=== PATIENT | male | born 1990 | race American Indian/Alaskan Native ===

== ENCOUNTER 2018-01-03 15:44 | Emergency (ER) | payer MEDICAID ==
[2018-01-03 16:00] VITALS: BP 154/110
[2018-01-03] MEDS ORDERED: MOTRIN PO ONE (16:58)
--- NOTE | 2018-01-03 16:59 | Emergency Department Report ---
ED Male HPI - General Chief complaint: Skin/Abscess/Foreign Body Stated complaint: BOIL Time Seen by Provider: 01/03/18 16:44 Source: patient Mode of arrival: Ambulatory Limitations: No Limitations - History of Present Illness Initial comments: 27-year-old male presents with complaint of 3 days of left-sided scrotal discomfort. Denies fever or chills denies nausea vomiting denies any trauma to his testicles or scrotum. Denies any urethral discharge denies any dysuria. States he had a case of scrotal cellulitis over a year ago and this is similar to the symptoms he experienced in the past. Patient was treated with antibiotics previously and resolved as per patient. Patient states that this current episode is extremely similar to prior episode. MD Complaint: testicle pain, testicle swelling Onset/Timin -: days(s) Location: left testicle Radiation: none Severity: moderate Quality: aching Consistency: constant Improves with: none Worsens with: none - Related Data Previous Rx's Medication Instructions Recorded Last Taken Type Cephalexin [Keflex] 500 mg PO Q12HR #14 cap 01/03/18 Unknown Rx Naproxen [Naprosyn TAB] 375 mg PO BID PRN #20 tablet 01/03/18 Unknown Rx Sulfamethoxazole/Trimethoprim 1 each PO BID #14 tablet 01/03/18 Unknown Rx [Bactrim Ds Tablet] Allergies Allergy/AdvReac Type Severity Reaction Status Date / Time morphine Allergy Hives Verified 01/03/18 15:59 ED Review of Systems ROS: Stated complaint: BOIL Other details as noted in HPI Constitutional: denies: chills, fever Eyes: denies: eye pain, eye discharge, vision change ENT: denies: ear pain, throat pain Respiratory: denies: cough, shortness of breath, wheezing Cardiovascular: denies: chest pain, palpitations Endocrine: no symptoms reported Gastrointestinal: denies: abdominal pain, nausea, diarrhea Genitourinary: denies: urgency, dysuria Musculoskeletal: denies: back pain, joint swelling, arthralgia Skin: denies: rash, lesions Neurological: denies: headache, weakness, paresthesias Psychiatric: denies: anxiety, depression Hematological/Lymphatic: denies: easy bleeding, easy bruising ED Past Medical Hx - Past Medical History Hx Hypertension: Yes - Surgical History Past Surgical History?: No - Social History Smoking Status: Never Smoker Substance Use Type: None - Medications Home Medications: Home Medications Medication Instructions Recorded Confirmed Last Taken Type Cephalexin [Keflex] 500 mg PO Q12HR #14 cap 01/03/18 Unknown Rx Naproxen [Naprosyn TAB] 375 mg PO BID PRN #20 tablet 01/03/18 Unknown Rx Sulfamethoxazole/Trimethoprim 1 each PO BID #14 tablet 01/03/18 Unknown Rx [Bactrim Ds Tablet] ED Physical Exam - General Limitations: No Limitations General appearance: alert, in no apparent distress - Head Head exam: Present: atraumatic, normocephalic - Eye Eye exam: Present: normal appearance, PERRL, EOMI - ENT ENT exam: Present: mucous membranes moist - Neck Neck exam: Present: normal inspection - Respiratory Respiratory exam: Present: normal lung sounds bilaterally. Absent: respiratory distress - Cardiovascular Cardiovascular Exam: Present: regular rate, normal rhythm. Absent: systolic murmur, diastolic murmur, rubs, gallop - GI/Abdominal GI/Abdominal exam: Present: soft, normal bowel sounds - Rectal Rectal exam: Present: deferred - exam: Present: testicular tenderness, scrotal swelling (left-sided testicular swelling and tenderness, some induration and no palpable fluctuance on examination.) - Extremities Exam Extremities exam: Present: normal inspection - Back Exam Back exam: Present: normal inspection - Neurological Exam Neurological exam: Present: alert, oriented X3, CN II-XII intact, normal gait - Psychiatric Psychiatric exam: Present: normal affect, normal mood - Skin Skin exam: Present: warm, dry, intact, normal color. Absent: rash ED Course Vital Signs 01/03/18 01/03/18 15:56 17:07 Temperature 98.3 F Pulse Rate 76 Respiratory 16 20 Rate Blood Pressure 154/110 O2 Sat by Pulse 97 Oximetry ED Medical Decision Making - Medical Decision Making A/P: Small scrotal abscess left sided 1-Keflex and Bactrim twice a day for 7 days 2-sits baths, warm compresses 3-naproxen when necessary 4-advised patient to return to the ED for any worsened abscess worsened swelling fever or chills nausea or vomiting difficulty urinating or defecating. He stated he understood my instructions 5- no clinical signs of Raman's gangrene on exam Critical care attestation.: If time is entered above; I have spent that time in minutes in the direct care of this critically ill patient, excluding procedure time. ED Disposition Clinical Impression: Cellulitis of scrotum Disposition: - TO HOME OR SELFCARE Is pt being admited?: No Does the pt Need Aspirin: No Condition: Stable Instructions: Cellulitis (ED), Sitz Bath (GEN) Prescriptions: Cephalexin [Keflex] 500 mg PO Q12HR #14 cap Naproxen [Naprosyn TAB] 375 mg PO BID PRN #20 tablet PRN Reason: Pain Sulfamethoxazole/Trimethoprim [Bactrim Ds Tablet] 1 each PO BID #14 tablet Referrals: PRIMARY CARE, [Primary Care Provider] - 3-5 Days [facility] [Outside] - 3-5 Days [facility] [Outside] - 3-5 Days Forms: Work/School Release Form(ED) Time of Disposition: 18:29
--- NOTE | 2018-01-03 18:16 | Ultrasound Report ---
FINAL REPORT PROCEDURE: US SCROTUM TECHNIQUE: Limited ultrasound of the left scrotal skin was performed HISTORY: left sided scrotal cellulitis / abscess COMPARISON: No prior studies are available for comparison. FINDINGS: In the area of concern there is a heterogeneous hypervascular subcutaneous area which measures 1.4 x 1.4 x 1.3 centimeters. No fluid collection is seen. This could be related to an area of cellulitis or early phlegmon. No drainable abscess is seen. IMPRESSION: Focal area of hypervascularity in the area of concern in the left scrotal subcutaneous area may be related to cellulitis or early phlegmon. No abscess is seen
== END 2018-01-03 18:40 | disposition home or self-care (01) ==
LOC: ED 15:44
DX: N49.2 Inflammatory disorders of scrotum (principal); I10 Essential (primary) hypertension; Z88.6 Allergy status to analgesic agent
CPT/HCPCS: 76870; 99283

== ENCOUNTER 2019-01-29 11:14 | Emergency (ER) | payer MEDICAID ==
[2019-01-29 11:40] VITALS: BP 148/92
--- NOTE | 2019-01-29 11:54 | Emergency Department Report ---
Chief Complaint: Upper Respiratory Infection Stated Complaint: COUGH 1WEEK Time Seen by Provider: 01/29/19 11:53 - HPI History of Present Illness: pt presents with a cough with mucus production x 1 week was seen at [facility] 3 days ago and placed on steroids, did not have CXR at that time states sx are not resolving no fever has not seen PCP - Exam Vital Signs: Vital Signs 01/29/19 11:39 Temperature 98.3 F Pulse Rate 75 Respiratory 18 Rate Blood Pressure 148/92 O2 Sat by Pulse 98 Oximetry MSE screening note: Focused history and physical exam performed. Due to findings the following was ordered: CXR ED Disposition for MSE Condition: Stable
[2019-01-29] MEDS ORDERED: TESSALON PERLES PO ONE (12:39)
[2019-01-29] MEDS ORDERED: IBUPROFEN PO ONE (12:39)
--- NOTE | 2019-01-29 12:39 | XRay Report ---
XRAY CHEST TWO VIEWS: 01/29/19 11:14:00 CLINICAL: Productive cough. COMPARISON: None FINDINGS: Normal heart and pulmonary vasculature. The lungs are normally expanded and clear.The bones and soft tissues are unremarkable. IMPRESSION: Normal chest.No pneumonia.
--- NOTE | 2019-01-29 12:42 | Emergency Department Report ---
Upper Respiratory HPI - HPI Chief Complaint: Upper Respiratory Infection Stated Complaint: COUGH 1WEEK Time Seen by Provider: 01/29/19 11:53 Duration: 1 week URI Symptoms: Rhinorrhea: Yes, Sore Throat: No, Ear Pain: No, Cough: Yes, Shortness of Breath: No, Sick Contacts: No, Unable to Take Fluids: No, Urine Output Abnormal: No, Listless Behavior: No Other History: This is a 28-year-old female nontoxic, well nourished in appearance, no acute signs of distress presents to the ED with c/o of productive cough, rhinorrhea, nasal congestion x1 week. Patient describes productive cough as yellow mucus production. Patient denies any sick contact. Patient denies any recent travels, long car, recent hospital stays. Patient denies any calf pain or calf tenderness. Patient denies any chest pain, short of breath, fever, chills, nausea, vomiting, hemoptysis, numbness, tingling, headache or stiff neck. - Home Meds and Allergies Home Medications: Previous Rx's Medication Instructions Recorded Last Taken Type Naproxen [Naprosyn TAB] 375 mg PO BID PRN #20 tablet 01/03/18 Unknown Rx Sulfamethoxazole/Trimethoprim 1 each PO BID #14 tablet 01/03/18 Unknown Rx [Bactrim Ds Tablet] cephALEXin [Keflex] 500 mg PO Q12HR #14 cap 01/03/18 Unknown Rx Azithromycin [Zithromax Z-ROBI] 250 mg PO DAILY #6 tablet 01/29/19 Unknown Rx Benzonatate [Tessalon Perle] 100 mg PO Q8H PRN #20 capsule 01/29/19 Unknown Rx Ibuprofen [Motrin] 600 mg PO Q8H PRN #20 tablet 01/29/19 Unknown Rx Prednisone [predniSONE 10 mg 10 mg PO .TAPER #1 tab.ds.pk 01/29/19 Unknown Rx (6-Day Pack, 21 Tabs)] Allergies/Adverse Reactions: Allergies Allergy/AdvReac Type Severity Reaction Status Date / Time morphine Allergy Hives Verified 01/03/18 15:59 ED Review of Systems ROS: Stated complaint: COUGH 1WEEK Other details as noted in HPI Constitutional: denies: chills, fever Eyes: denies: eye pain, eye discharge, vision change ENT: congestion. denies: ear pain, throat pain Respiratory: cough. denies: shortness of breath, wheezing Cardiovascular: denies: chest pain, palpitations Endocrine: no symptoms reported Gastrointestinal: denies: abdominal pain, nausea, diarrhea Genitourinary: denies: urgency, dysuria Musculoskeletal: denies: back pain, joint swelling, arthralgia Skin: denies: rash, lesions Neurological: denies: headache, weakness, paresthesias Psychiatric: denies: anxiety, depression Hematological/Lymphatic: denies: easy bleeding, easy bruising ED Past Medical Hx - Past Medical History Hx Hypertension: Yes - Social History Smoking Status: Never Smoker Substance Use Type: None - Medications Home Medications: Home Medications Medication Instructions Recorded Confirmed Last Taken Type Naproxen [Naprosyn TAB] 375 mg PO BID PRN #20 tablet 01/03/18 Unknown Rx Sulfamethoxazole/Trimethoprim 1 each PO BID #14 tablet 01/03/18 Unknown Rx [Bactrim Ds Tablet] cephALEXin [Keflex] 500 mg PO Q12HR #14 cap 01/03/18 Unknown Rx Azithromycin [Zithromax Z-ROBI] 250 mg PO DAILY #6 tablet 01/29/19 Unknown Rx Benzonatate [Tessalon Perle] 100 mg PO Q8H PRN #20 capsule 01/29/19 Unknown Rx Ibuprofen [Motrin] 600 mg PO Q8H PRN #20 tablet 01/29/19 Unknown Rx Prednisone [predniSONE 10 mg 10 mg PO .TAPER #1 tab.ds.pk 01/29/19 Unknown Rx (6-Day Pack, 21 Tabs)] ED Bronchiolitis Physical Exam - Exam General: Vital signs noted. No distress. Alert and acting appropriately. Neurologic: Alert and oriented, no deficits. Musculoskeletal: Unremarkable. ED Bronchiolitis Tests - Testing Testing: CXR: Normal/Negative ED Physical Exam - General Limitations: No Limitations General appearance: alert, in no apparent distress - Head Head exam: Present: atraumatic, normocephalic - Eye Eye exam: Present: normal appearance - ENT ENT exam: Present: normal exam, normal orophraynx - Neck Neck exam: Present: normal inspection, full ROM. Absent: tenderness, meningismus, lymphadenopathy - Respiratory Respiratory exam: Present: normal lung sounds bilaterally. Absent: respiratory distress, wheezes, rales, rhonchi, stridor, chest wall tenderness, accessory muscle use, decreased breath sounds, prolonged expiratory - Cardiovascular Cardiovascular Exam: Present: regular rate, normal rhythm, normal heart sounds. Absent: bradycardia, tachycardia, irregular rhythm, systolic murmur, diastolic murmur, rubs, gallop - Rectal Rectal exam: Present: deferred - Extremities Exam Extremities exam: Present: normal inspection, full ROM - Back Exam Back exam: Present: normal inspection, full ROM - Neurological Exam Neurological exam: Present: alert, oriented X3 - Psychiatric Psychiatric exam: Present: normal affect, normal mood - Skin Skin exam: Present: warm, dry, intact, normal color. Absent: rash ED Course Vital Signs 01/29/19 11:39 Temperature 98.3 F Pulse Rate 75 Respiratory 18 Rate Blood Pressure 148/92 O2 Sat by Pulse 98 Oximetry - Reevaluation(s) Reevaluation #1: 01/29/19 12:41 Patient is speaking in full sentences with no signs of distress noted. ED Medical Decision Making - Medical Decision Making This is a 28-year-old male that presents with bronchitis. Patient is stable and was examined by me. Chest x-ray has been obtained and dictated by radiologist with normal exam. Patient is notified of x-ray results with no questions noted. Due to patient having symptoms of upper respiratory infection and worsening I will treat patient empirically with zpak. Patient was instructed to increase hydration, rest and take Motrin for fever episodes. Patient received motrin and tesslone perrls in the ED. Vitals stable. Patient is nonfebrile and normal heart rate. Patient was instructed Follow-up with a primary care doctor in 3-5 days or if symptoms worsen and continue return to emergency room as soon as possible. At time time of discharge, the patient does not seem toxic or ill in appearance. No acute signs of distress noted. Patient agrees to discharge treatment plan of care. No further questions noted by the patient. Critical care attestation.: If time is entered above; I have spent that time in minutes in the direct care of this critically ill patient, excluding procedure time. ED Disposition Clinical Impression: Bronchitis Disposition: DC-01 TO HOME OR SELFCARE Is pt being admited?: No Does the pt Need Aspirin: No Condition: Stable Instructions: Acute Bronchitis (ED) Additional Instructions: Follow-up with a primary care doctor in 3-5 days or if symptoms worsen and continue return to emergency room as soon as possible. Prescriptions: Ibuprofen [Motrin] 600 mg PO Q8H PRN #20 tablet PRN Reason: Pain Prednisone [predniSONE 10 mg (6-Day Pack, 21 Tabs)] 10 mg PO .TAPER #1 tab.ds.pk Benzonatate [Tessalon Perle] 100 mg PO Q8H PRN #20 capsule PRN Reason: Cough Azithromycin [Zithromax Z-ROBI] 250 mg PO DAILY #6 tablet Referrals: PRIMARY CAREMD [Referring] - 3-5 Days DIANA PATEL MD [Staff Physician] - 3-5 Days [facility] [Outside] - 3-5 Days [facility] [Outside] - 3-5 Days Forms: Work/School Release Form(ED)
== END 2019-01-29 13:04 | disposition home or self-care (01) ==
LOC: ED 11:14
DX: J40 Bronchitis, not specified as acute or chronic (principal); I10 Essential (primary) hypertension; Z88.6 Allergy status to analgesic agent
CPT/HCPCS: 71046; 99283

== ENCOUNTER 2019-04-15 15:03 | Emergency (ER) | payer MEDICAID ==
[2019-04-15 15:20] VITALS: BP 145/98
--- NOTE | 2019-04-15 15:20 | Event Note ---
ED Screening Note Date of service: 04/15/19 Time: 15:18 ED Screening Note: 28 y/o male comes in for abscess on left upper thigh for 2-3 weeks. This initial assessment/diagnostic orders/clinical plan/treatment(s) is/are subject to change based on patients health status, clinical progression and re- assessment by fellow clinical providers in the ED. Further treatment and workup at subsequent clinical providers discretion. Patient/guardian urged not to elope from the ED as their condition may be serious if not clinically assessed and managed. Initial orders include:
[2019-04-15] MEDS ORDERED: XYLOCAINE 1% 20 mL INFILTRATI ONE (15:51)
--- NOTE | 2019-04-15 16:42 | Emergency Department Report ---
ED General Adult HPI - General Chief complaint: Skin/Abscess/Foreign Body Stated complaint: ABCESS ON LT BUTTOCK Time Seen by Provider: 04/15/19 15:18 Source: patient Mode of arrival: Ambulatory Limitations: No Limitations - History of Present Illness Initial comments: The patient presents to the emergency department with a chief complaint of an abscess to his right buttocks. Patient states the abscess has been present for 3 weeks and has not improved with warm compresses and soaks. Patient has no other complaints and denies fever. -: Gradual Location: buttocks Radiation: non-radiation Severity scale (0 -10): 5 Quality: sharp Consistency: constant Improves with: none Worsens with: none Associated Symptoms: denies other symptoms Treatments Prior to Arrival: none - Related Data Previous Rx's Medication Instructions Recorded Last Taken Type Naproxen [Naprosyn TAB] 375 mg PO BID PRN #20 tablet 01/03/18 Unknown Rx Sulfamethoxazole/Trimethoprim 1 each PO BID #14 tablet 01/03/18 Unknown Rx [Bactrim Ds Tablet] cephALEXin [Keflex] 500 mg PO Q12HR #14 cap 01/03/18 Unknown Rx Azithromycin [Zithromax Z-ROBI] 250 mg PO DAILY #6 tablet 01/29/19 Unknown Rx Benzonatate [Tessalon Perle] 100 mg PO Q8H PRN #20 capsule 01/29/19 Unknown Rx Ibuprofen [Motrin] 600 mg PO Q8H PRN #20 tablet 01/29/19 Unknown Rx Prednisone [predniSONE 10 mg 10 mg PO .TAPER #1 tab.ds.pk 01/29/19 Unknown Rx (6-Day Pack, 21 Tabs)] Acetaminophen/Codeine [Tylenol 1 tab PO Q6H PRN #15 tab 04/15/19 Unknown Rx /Codeine # 3 tab] Sulfamethoxazole/Trimethoprim 2 each PO BID #28 tablet 04/15/19 Unknown Rx [Bactrim DS TAB] Allergies Allergy/AdvReac Type Severity Reaction Status Date / Time morphine Allergy Hives Verified 01/03/18 15:59 ED Review of Systems ROS: Stated complaint: ABCESS ON LT BUTTOCK Other details as noted in HPI Constitutional: denies: chills, fever Eyes: denies: eye pain, eye discharge, vision change ENT: denies: ear pain, throat pain Respiratory: denies: cough, shortness of breath, wheezing Cardiovascular: denies: chest pain, palpitations Endocrine: no symptoms reported Gastrointestinal: denies: abdominal pain, nausea, diarrhea Genitourinary: denies: urgency, dysuria Musculoskeletal: denies: back pain, joint swelling, arthralgia Skin: other (abscess). denies: rash, lesions Neurological: denies: headache, weakness, paresthesias Psychiatric: denies: anxiety, depression Hematological/Lymphatic: denies: easy bleeding, easy bruising ED Past Medical Hx - Past Medical History Previous Medical History?: Yes Hx Hypertension: Yes - Surgical History Past Surgical History?: Yes Additional Surgical History: nasal surgery. eye surgery - Social History Smoking Status: Never Smoker Substance Use Type: Alcohol - Medications Home Medications: Home Medications Medication Instructions Recorded Confirmed Last Taken Type Naproxen [Naprosyn TAB] 375 mg PO BID PRN #20 tablet 01/03/18 Unknown Rx Sulfamethoxazole/Trimethoprim 1 each PO BID #14 tablet 01/03/18 Unknown Rx [Bactrim Ds Tablet] cephALEXin [Keflex] 500 mg PO Q12HR #14 cap 01/03/18 Unknown Rx Azithromycin [Zithromax Z-ROBI] 250 mg PO DAILY #6 tablet 01/29/19 Unknown Rx Benzonatate [Tessalon Perle] 100 mg PO Q8H PRN #20 capsule 01/29/19 Unknown Rx Ibuprofen [Motrin] 600 mg PO Q8H PRN #20 tablet 01/29/19 Unknown Rx Prednisone [predniSONE 10 mg 10 mg PO .TAPER #1 tab.ds.pk 01/29/19 Unknown Rx (6-Day Pack, 21 Tabs)] Acetaminophen/Codeine [Tylenol 1 tab PO Q6H PRN #15 tab 04/15/19 Unknown Rx /Codeine # 3 tab] Sulfamethoxazole/Trimethoprim 2 each PO BID #28 tablet 04/15/19 Unknown Rx [Bactrim DS TAB] ED Physical Exam - General Limitations: No Limitations General appearance: alert, in no apparent distress - Head Head exam: Present: atraumatic, normocephalic - Eye Eye exam: Present: normal appearance, PERRL, EOMI - ENT ENT exam: Present: mucous membranes moist - Neck Neck exam: Present: normal inspection - Respiratory Respiratory exam: Present: normal lung sounds bilaterally. Absent: respiratory distress - Cardiovascular Cardiovascular Exam: Present: regular rate, normal rhythm. Absent: systolic murmur, diastolic murmur, rubs, gallop - GI/Abdominal GI/Abdominal exam: Present: soft, normal bowel sounds - Rectal Rectal exam: Present: deferred - Extremities Exam Extremities exam: Present: normal inspection - Back Exam Back exam: Present: normal inspection - Neurological Exam Neurological exam: Present: alert, oriented X3 - Psychiatric Psychiatric exam: Present: normal affect, normal mood - Skin Skin exam: Present: warm, dry, intact, normal color, other (abscess to the right blood clots chaperoned by Dixon BENSON volunteer). Absent: rash ED Course Vital Signs 04/15/19 15:16 Temperature 98.2 F Pulse Rate 113 H Respiratory 21 Rate Blood Pressure 145/98 [Left] O2 Sat by Pulse 99 Oximetry - I & D Right Buttocks Type of Procedure: Simple Blade Size: 11 I & D Procedure: betadine prep Critical care attestation.: If time is entered above; I have spent that time in minutes in the direct care of this critically ill patient, excluding procedure time. ED Disposition Clinical Impression: Abscess Disposition: DC-01 TO HOME OR SELFCARE Is pt being admited?: No Does the pt Need Aspirin: No Condition: Stable Instructions: Abscess Incision and Drainage (ED), Abscess (ED) Additional Instructions: return if worse Prescriptions: Sulfamethoxazole/Trimethoprim [Bactrim DS TAB] 2 each PO BID #28 tablet Referrals: GASTON RAMIREZ MD [Primary Care Provider] - 3-5 Days [facility] [Provider Group] - 3-5 Days [facility] [Provider Group] - 3-5 Days Time of Disposition: 16:41
== END 2019-04-15 17:02 | disposition home or self-care (01) ==
LOC: ED 15:03
DX: L02.31 Cutaneous abscess of buttock (principal); I10 Essential (primary) hypertension; Z79.899 Other long term (current) drug therapy; Z88.6 Allergy status to analgesic agent
CPT/HCPCS: 99282

== ENCOUNTER 2019-04-20 07:52 | Emergency (ER) | payer MEDICAID ==
[2019-04-20 07:57] VITALS: BP 126/91
[2019-04-20] MEDS ORDERED: CLEOCIN PO ONE (08:19)
[2019-04-20] MEDS ORDERED: IBUPROFEN PO ONE (08:19)
--- NOTE | 2019-04-20 08:48 | Emergency Department Report ---
ED General Adult HPI - General Chief complaint: Skin/Abscess/Foreign Body Stated complaint: KNOT ON HEAD Time Seen by Provider: 04/20/19 08:12 Source: patient Mode of arrival: Ambulatory Limitations: No Limitations - History of Present Illness Initial comments: Patient is a 28-year-old Bulgarian male with past history of psoriasis who is presenting with headache as well as swelling to the posterior scalp. Patient states headache been present for approximately 3-4 days is achy and posterior. Denies any neck stiffness nausea vomiting fevers or chills. Patient states he pressed on the back of his head and felt some swelling 3 days ago and believes this is the cause of the patient's headache. Severity scale (0 -10): 6 Quality: aching Consistency: constant Improves with: other (warm compress) - Related Data Previous Rx's Medication Instructions Recorded Last Taken Type Naproxen [Naprosyn TAB] 375 mg PO BID PRN #20 tablet 01/03/18 Unknown Rx Sulfamethoxazole/Trimethoprim 1 each PO BID #14 tablet 01/03/18 Unknown Rx [Bactrim Ds Tablet] cephALEXin [Keflex] 500 mg PO Q12HR #14 cap 01/03/18 Unknown Rx Azithromycin [Zithromax Z-ROBI] 250 mg PO DAILY #6 tablet 01/29/19 Unknown Rx Benzonatate [Tessalon Perle] 100 mg PO Q8H PRN #20 capsule 01/29/19 Unknown Rx Ibuprofen [Motrin] 600 mg PO Q8H PRN #20 tablet 01/29/19 Unknown Rx Prednisone [predniSONE 10 mg 10 mg PO .TAPER #1 tab.ds.pk 01/29/19 Unknown Rx (6-Day Pack, 21 Tabs)] Acetaminophen/Codeine [Tylenol 1 tab PO Q6H PRN #15 tab 04/15/19 Unknown Rx /Codeine # 3 tab] Sulfamethoxazole/Trimethoprim 2 each PO BID #28 tablet 04/15/19 Unknown Rx [Bactrim DS TAB] Clindamycin [Clindamycin CAP] 300 mg PO Q8H #21 cap 04/20/19 Unknown Rx Ibuprofen [Motrin 600 MG tab] 600 mg PO Q8H PRN #20 tablet 04/20/19 Unknown Rx Allergies Allergy/AdvReac Type Severity Reaction Status Date / Time morphine Allergy Hives Verified 01/03/18 15:59 ED Review of Systems ROS: Stated complaint: KNOT ON HEAD Other details as noted in HPI Comment: All other systems reviewed and negative ED Past Medical Hx - Past Medical History Previous Medical History?: Yes Hx Hypertension: Yes Hx Headaches / Migraines: Yes - Surgical History Past Surgical History?: Yes Additional Surgical History: nasal surgery. eye surgery - Social History Smoking Status: Never Smoker Substance Use Type: Alcohol - Medications Home Medications: Home Medications Medication Instructions Recorded Confirmed Last Taken Type Naproxen [Naprosyn TAB] 375 mg PO BID PRN #20 tablet 01/03/18 Unknown Rx Sulfamethoxazole/Trimethoprim 1 each PO BID #14 tablet 01/03/18 Unknown Rx [Bactrim Ds Tablet] cephALEXin [Keflex] 500 mg PO Q12HR #14 cap 01/03/18 Unknown Rx Azithromycin [Zithromax Z-ROBI] 250 mg PO DAILY #6 tablet 01/29/19 Unknown Rx Benzonatate [Tessalon Perle] 100 mg PO Q8H PRN #20 capsule 01/29/19 Unknown Rx Ibuprofen [Motrin] 600 mg PO Q8H PRN #20 tablet 01/29/19 Unknown Rx Prednisone [predniSONE 10 mg 10 mg PO .TAPER #1 tab.ds.pk 01/29/19 Unknown Rx (6-Day Pack, 21 Tabs)] Acetaminophen/Codeine [Tylenol 1 tab PO Q6H PRN #15 tab 04/15/19 Unknown Rx /Codeine # 3 tab] Sulfamethoxazole/Trimethoprim 2 each PO BID #28 tablet 04/15/19 Unknown Rx [Bactrim DS TAB] Clindamycin [Clindamycin CAP] 300 mg PO Q8H #21 cap 04/20/19 Unknown Rx Ibuprofen [Motrin 600 MG tab] 600 mg PO Q8H PRN #20 tablet 04/20/19 Unknown Rx ED Physical Exam - General Limitations: No Limitations General appearance: alert, in no apparent distress - Head Head exam: Present: atraumatic, normocephalic - Eye Eye exam: Present: normal appearance - ENT ENT exam: Present: mucous membranes moist - Neck Neck exam: Present: normal inspection - Respiratory Respiratory exam: Present: normal lung sounds bilaterally. Absent: respiratory distress - Cardiovascular Cardiovascular Exam: Present: regular rate, normal rhythm - GI/Abdominal GI/Abdominal exam: Present: soft, normal bowel sounds - Rectal Rectal exam: Present: deferred - Extremities Exam Extremities exam: Present: normal inspection - Back Exam Back exam: Present: normal inspection - Neurological Exam Neurological exam: Present: alert, oriented X3 - Psychiatric Psychiatric exam: Present: normal affect, normal mood - Skin Skin exam: Present: warm, dry, intact, normal color, other (patient with area of folliculitis in the posterior scalp has some erythema with no fluctuance. Areas breath sounds with silver dollar.). Absent: rash ED Course Vital Signs 04/20/19 07:53 Temperature 98.4 F Pulse Rate 99 H Respiratory 18 Rate Blood Pressure 126/91 O2 Sat by Pulse 97 Oximetry ED Medical Decision Making - Medical Decision Making Patient's headache likely secondary to folliculitis that was discovered on physical exam. Patient will be started on clindamycin given Ms. for symptomatic relief and will be discharged home. Critical care attestation.: If time is entered above; I have spent that time in minutes in the direct care of this critically ill patient, excluding procedure time. ED Disposition Clinical Impression: Folliculitis Disposition: DC-01 TO HOME OR SELFCARE Is pt being admited?: No Does the pt Need Aspirin: No Condition: Stable Instructions: Folliculitis (ED) Referrals: GASTON RAMIREZ MD [Referring] - 3-5 Days Time of Disposition: 08:47
== END 2019-04-20 08:57 | disposition home or self-care (01) ==
LOC: ED 07:52
DX: L73.9 Follicular disorder, unspecified (principal); I10 Essential (primary) hypertension; G43.909 Migraine, unspecified, not intractable, without status migrainosus; Z79.899 Other long term (current) drug therapy; Z88.6 Allergy status to analgesic agent
CPT/HCPCS: 99282

== ENCOUNTER 2019-05-05 03:29 | Emergency (ER) | payer MEDICAID ==
[2019-05-05 03:34] VITALS: BP 162/110
[2019-05-05] MEDS ORDERED: DECADRON IM ONE (05:02)
[2019-05-05] MEDS ORDERED: TORADOL IM ONE (05:02)
--- NOTE | 2019-05-05 05:43 | Emergency Department Report ---
ED Neck Pain/Injury HPI - General Chief Complaint: Neck Pain/Injury Stated Complaint: NECK PAIN Time Seen by Provider: 05/05/19 04:50 Mode of arrival: Ambulatory Limitations: No Limitations - History of Present Illness Initial Comments: Patient is a 28-year-old -[place] male with no past medical history presents to the ED complaining of acute onset persistent severe nontraumatic right lateral shoulder pain and neck pain for the last 4 days. Patient states that he woke up with a thin 4 days ago on that in the last 2 days the pain has worsened despite taking any medications and muscle relaxant at home. Patient denies chest pain, shortness of breath, traumatic injury, heavy lifting, dizziness, headache, change in vision, numbness and tingling of the upper extremities bilaterally, back pain, nausea and vomiting. MD Complaint: neck pain, other (right lateral shoulder pain) -: Sudden, days(s) (4) Place: home Radiation: right lateral, right upper extremity (shoulder) Severity: severe, constant Severity scale (0 -10): 7 Quality: sharp, aching Consistency: constant Improves With: none Worsens With: movement of extremity (right shoulder), movement of neck Context: unknown Associated Symptoms: none. denies: headache, fever, numbness, tingling, weakness, vertigo, difficulty walking, swollen glands, difficulty swallowing, nausea, vomiting Treatments Prior to Arrival: none - Related Data Previous Rx's Medication Instructions Recorded Last Taken Type Naproxen [Naprosyn TAB] 375 mg PO BID PRN #20 tablet 01/03/18 Unknown Rx Sulfamethoxazole/Trimethoprim 1 each PO BID #14 tablet 01/03/18 Unknown Rx [Bactrim Ds Tablet] cephALEXin [Keflex] 500 mg PO Q12HR #14 cap 01/03/18 Unknown Rx Azithromycin [Zithromax Z-ROBI] 250 mg PO DAILY #6 tablet 01/29/19 Unknown Rx Benzonatate [Tessalon Perle] 100 mg PO Q8H PRN #20 capsule 01/29/19 Unknown Rx Ibuprofen [Motrin] 600 mg PO Q8H PRN #20 tablet 01/29/19 Unknown Rx Prednisone [predniSONE 10 mg 10 mg PO .TAPER #1 tab.ds.pk 01/29/19 Unknown Rx (6-Day Pack, 21 Tabs)] Acetaminophen/Codeine [Tylenol 1 tab PO Q6H PRN #15 tab 04/15/19 Unknown Rx /Codeine # 3 tab] Sulfamethoxazole/Trimethoprim 2 each PO BID #28 tablet 04/15/19 Unknown Rx [Bactrim DS TAB] Clindamycin [Clindamycin CAP] 300 mg PO Q8H #21 cap 04/20/19 Unknown Rx Ibuprofen [Motrin 600 MG tab] 600 mg PO Q8H PRN #20 tablet 04/20/19 Unknown Rx Naproxen [Naprosyn TAB] 500 mg PO Q12H PRN #20 tablet 05/05/19 Unknown Rx predniSONE [Deltasone] 40 mg PO QDAY #10 tab 05/05/19 Unknown Rx tiZANidine [Zanaflex 4mg TAB] 4 mg PO Q8H PRN #21 tablet 05/05/19 Unknown Rx traMADol [Ultram] 50 mg PO Q6HR PRN #10 tablet 05/05/19 Unknown Rx Allergies Allergy/AdvReac Type Severity Reaction Status Date / Time morphine Allergy Hives Verified 01/03/18 15:59 ED Review of Systems ROS: Stated complaint: NECK PAIN Other details as noted in HPI Constitutional: denies: chills, fever Eyes: denies: eye pain, eye discharge, vision change ENT: denies: ear pain, throat pain Respiratory: denies: cough, shortness of breath, SOB with exertion, SOB at rest, wheezing Cardiovascular: denies: chest pain, palpitations Endocrine: no symptoms reported. denies: see HPI, excessive sweating, flushing, increased hunger, increased thirst, increased urine, unexplained weight gain, unexplained weight loss Gastrointestinal: denies: abdominal pain, nausea, diarrhea Genitourinary: denies: urgency, dysuria Musculoskeletal: arthralgia (right lateral neck and shoulder pain). denies: back pain, joint swelling Skin: denies: rash, lesions Neurological: denies: headache, weakness, paresthesias Psychiatric: denies: anxiety, depression Hematological/Lymphatic: denies: easy bleeding, easy bruising ED Past Medical Hx - Past Medical History Previous Medical History?: Yes Hx Hypertension: Yes Hx Headaches / Migraines: Yes - Surgical History Past Surgical History?: Yes Additional Surgical History: nasal surgery. eye surgery - Social History Smoking Status: Never Smoker Substance Use Type: Alcohol - Medications Home Medications: Home Medications Medication Instructions Recorded Confirmed Last Taken Type Naproxen [Naprosyn TAB] 375 mg PO BID PRN #20 tablet 01/03/18 Unknown Rx Sulfamethoxazole/Trimethoprim 1 each PO BID #14 tablet 01/03/18 Unknown Rx [Bactrim Ds Tablet] cephALEXin [Keflex] 500 mg PO Q12HR #14 cap 01/03/18 Unknown Rx Azithromycin [Zithromax Z-ROBI] 250 mg PO DAILY #6 tablet 01/29/19 Unknown Rx Benzonatate [Tessalon Perle] 100 mg PO Q8H PRN #20 capsule 01/29/19 Unknown Rx Ibuprofen [Motrin] 600 mg PO Q8H PRN #20 tablet 01/29/19 Unknown Rx Prednisone [predniSONE 10 mg 10 mg PO .TAPER #1 tab.ds.pk 01/29/19 Unknown Rx (6-Day Pack, 21 Tabs)] Acetaminophen/Codeine [Tylenol 1 tab PO Q6H PRN #15 tab 04/15/19 Unknown Rx /Codeine # 3 tab] Sulfamethoxazole/Trimethoprim 2 each PO BID #28 tablet 04/15/19 Unknown Rx [Bactrim DS TAB] Clindamycin [Clindamycin CAP] 300 mg PO Q8H #21 cap 04/20/19 Unknown Rx Ibuprofen [Motrin 600 MG tab] 600 mg PO Q8H PRN #20 tablet 04/20/19 Unknown Rx Naproxen [Naprosyn TAB] 500 mg PO Q12H PRN #20 tablet 05/05/19 Unknown Rx predniSONE [Deltasone] 40 mg PO QDAY #10 tab 05/05/19 Unknown Rx tiZANidine [Zanaflex 4mg TAB] 4 mg PO Q8H PRN #21 tablet 05/05/19 Unknown Rx traMADol [Ultram] 50 mg PO Q6HR PRN #10 tablet 05/05/19 Unknown Rx ED Physical Exam - General Limitations: No Limitations General appearance: alert, in no apparent distress - Head Head exam: Present: atraumatic, normocephalic, normal inspection - Eye Eye exam: Present: normal appearance, PERRL, EOMI. Absent: scleral icterus, conjunctival injection, nystagmus Pupils: Present: normal accommodation - ENT ENT exam: Present: normal exam, normal orophraynx, mucous membranes moist, TM's normal bilaterally, normal external ear exam - Neck Neck exam: Present: normal inspection, tenderness (palpable cervical paraspinal musculoskeletal tenderness with limited ROM due to pain). Absent: meningismus, full ROM, lymphadenopathy, thyromegaly - Respiratory Respiratory exam: Present: normal lung sounds bilaterally. Absent: respiratory distress, wheezes, rales, stridor, chest wall tenderness, accessory muscle use, decreased breath sounds, prolonged expiratory - Cardiovascular Cardiovascular Exam: Present: regular rate, normal rhythm, normal heart sounds. Absent: systolic murmur, diastolic murmur, rubs, gallop - GI/Abdominal GI/Abdominal exam: Present: soft, normal bowel sounds. Absent: tenderness, guarding, organomegaly - Rectal Rectal exam: Present: deferred - Extremities Exam Extremities exam: Present: normal inspection, full ROM, tenderness (right lateral shoulder tenderness), normal capillary refill - Back Exam Back exam: Present: normal inspection, full ROM. Absent: tenderness, CVA tenderness (L), muscle spasm, paraspinal tenderness, vertebral tenderness - Neurological Exam Neurological exam: Present: alert, oriented X3, CN II-XII intact, normal gait, reflexes normal - Psychiatric Psychiatric exam: Present: normal affect, normal mood - Skin Skin exam: Present: warm, dry, intact, normal color. Absent: rash ED Course Vital Signs 05/05/19 03:33 Temperature 97.5 F L Pulse Rate 97 H Respiratory 18 Rate Blood Pressure 162/110 [Right] O2 Sat by Pulse 98 Oximetry - Reevaluation(s) Reevaluation #1: 05/05/19 05:43 Patient is alert and oriented 3 and is not in distress with normal vital signs. Patient was treated for pain and on reevaluation, patient's pain is controlled with medications. Patient discharged home on medications and advised to follow up with his primary care physician in 5-7 days for reevaluation. Patient is advised to return to the ED immediately if symptoms get worse. ED Medical Decision Making - Medical Decision Making Patient is alert and oriented 3 and is not in distress with normal vital signs. Patient was treated for pain and on reevaluation, patient's pain is controlled with medications. Patient discharged home on medications and advised to follow up with his primary care physician in 5-7 days for reevaluation. Patient is ad vised to return to the ED immediately if symptoms get worse. - Differential Diagnosis cervical sprain; acute torticollis; right shoulder muscle strain Critical care attestation.: If time is entered above; I have spent that time in minutes in the direct care of this critically ill patient, excluding procedure time. ED Disposition Clinical Impression: Cervical paraspinal muscle spasm, Acute torticollis Muscle strain of right shoulder Qualifiers: Encounter type: initial encounter Qualified Code(s): S46.911A - Strain of unspecified muscle, fascia and tendon at shoulder and upper arm level, right arm, initial encounter Disposition: TO HOME OR SELFCARE Is pt being admited?: No Does the pt Need Aspirin: No Condition: Stable Instructions: Muscle Strain (ED), Cervical Sprain (ED), Spasmodic Torticollis (ED) Additional Instructions: Take medications with food, drink plenty of fluids and follow up with your primary care physician in 5-7 days for reevaluation. Return to the ED immediately if symptoms get worse. Prescriptions: predniSONE [Deltasone] 40 mg PO QDAY #10 tab Naproxen [Naprosyn TAB] 500 mg PO Q12H PRN #20 tablet PRN Reason: Pain , Severe (7-10) traMADol [Ultram] 50 mg PO Q6HR PRN #10 tablet PRN Reason: Pain tiZANidine [Zanaflex 4mg TAB] 4 mg PO Q8H PRN #21 tablet PRN Reason: Spasms Referrals: [facility] [Outside] - 3-5 Days Time of Disposition: 05:46 Print Language: SAMI
== END 2019-05-05 06:16 | disposition home or self-care (01) ==
LOC: ED 03:29
DX: S46.911A Strain of unspecified muscle, fascia and tendon at shoulder and upper arm level, right arm, initial encounter (principal); M62.838 Other muscle spasm; M43.6 Torticollis; I10 Essential (primary) hypertension; G43.909 Migraine, unspecified, not intractable, without status migrainosus; Z79.899 Other long term (current) drug therapy; Z88.6 Allergy status to analgesic agent; Z98.890 Other specified postprocedural states; X58.XXXA Exposure to other specified factors, initial encounter; Y93.89 Activity, other specified; Y92.89 Other specified places as the place of occurrence of the external cause; Y99.8 Other external cause status
CPT/HCPCS: 96372; 99282; J1100; J1885

== ENCOUNTER 2019-05-06 17:03 | Emergency (ER) | payer MEDICAID ==
[2019-05-06 17:32] VITALS: BP 167/113
--- NOTE | 2019-05-06 17:32 | Event Note ---
ED Screening Note Date of service: 05/06/19 Time: 17:31 ED Screening Note: 28 y o male presents to ED cc of severe right sided shoulder pain, no trauma in some distress ekg done was seen few days ago This initial assessment/diagnostic orders/clinical plan/treatment(s) is/are subject to change based on patients health status, clinical progression and re- assessment by fellow clinical providers in the ED. Further treatment and workup at subsequent clinical providers discretion. Patient/guardian urged not to elope from the ED as their condition may be serious if not clinically assessed and managed. Initial orders include: EKG [place]
[2019-05-06] MEDS ORDERED: IBUPROFEN PO ONE (17:34)
[2019-05-06] MEDS ORDERED: DELTASONE PO ONE (19:53)
--- NOTE | 2019-05-06 20:16 | Emergency Department Report ---
ED Upper Extremity Inj HPI - General Chief Complaint: Shoulder Injury Stated Complaint: RT SIDE SHOULDE PAIN Time Seen by Provider: 05/06/19 17:30 Source: patient Mode of arrival: Ambulatory Limitations: No Limitations - History of Present Illness Initial Comments: Patient is a 28-year-old -[place] male with h/o chronic migraine headache and HTN who presents to the ED with constant of acute onset persistent lateral right shoulder pain and lateral right neck pain for the last 2 days. Patient was treated in the ED 24 hours ago and discharged home on pain medications, muscle relaxants and steroid. Patient states that the pain got worse about 6 hours ago while he was at work. Patient states that the last time he took the medications that were prescribed was in the morning about 12 hours ago. Patient denies shortness of breath, traumatic injury, fall, heavy lifting, nausea, vomiting, headache, chest pain, back pain, numbness and tingling of her right arm or dizziness. MD Complaint: Injury to:: right, shoulder -: Sudden, days(s) (2) Other Extremity Injury: Shoulder: Right (Lateral right shoulder and neck) Other Injuries: neck (lateral right shoulder) Handedness: right Place: home Severity scale (0 -10): 8 Improves With: none Worsens With: none Context: other (Spontaneous) Associated Symptoms: denies other symptoms, neck pain (right lateral neck). denies: weakness, numbness Treatments Prior to Arrival: NSAIDS - Related Data Previous Rx's Medication Instructions Recorded Last Taken Type Naproxen [Naprosyn TAB] 375 mg PO BID PRN #20 tablet 01/03/18 Unknown Rx Sulfamethoxazole/Trimethoprim 1 each PO BID #14 tablet 01/03/18 Unknown Rx [Bactrim Ds Tablet] cephALEXin [Keflex] 500 mg PO Q12HR #14 cap 01/03/18 Unknown Rx Azithromycin [Zithromax Z-ROBI] 250 mg PO DAILY #6 tablet 01/29/19 Unknown Rx Benzonatate [Tessalon Perle] 100 mg PO Q8H PRN #20 capsule 01/29/19 Unknown Rx Ibuprofen [Motrin] 600 mg PO Q8H PRN #20 tablet 01/29/19 Unknown Rx Prednisone [predniSONE 10 mg 10 mg PO .TAPER #1 tab.ds.pk 01/29/19 Unknown Rx (6-Day Pack, 21 Tabs)] Acetaminophen/Codeine [Tylenol 1 tab PO Q6H PRN #15 tab 04/15/19 Unknown Rx /Codeine # 3 tab] Sulfamethoxazole/Trimethoprim 2 each PO BID #28 tablet 04/15/19 Unknown Rx [Bactrim DS TAB] Clindamycin [Clindamycin CAP] 300 mg PO Q8H #21 cap 04/20/19 Unknown Rx Ibuprofen [Motrin 600 MG tab] 600 mg PO Q8H PRN #20 tablet 04/20/19 Unknown Rx Naproxen [Naprosyn TAB] 500 mg PO Q12H PRN #20 tablet 05/05/19 Unknown Rx predniSONE [Deltasone] 40 mg PO QDAY #10 tab 05/05/19 Unknown Rx tiZANidine [Zanaflex 4mg TAB] 4 mg PO Q8H PRN #21 tablet 05/05/19 Unknown Rx traMADol [Ultram] 50 mg PO Q6HR PRN #10 tablet 05/05/19 Unknown Rx Allergies Allergy/AdvReac Type Severity Reaction Status Date / Time morphine Allergy Hives Verified 01/03/18 15:59 ED Review of Systems ROS: Stated complaint: RT SIDE SHOULDE PAIN Other details as noted in HPI Constitutional: denies: chills, fever Eyes: denies: eye pain, eye discharge, vision change ENT: denies: ear pain, throat pain Respiratory: denies: cough, shortness of breath, wheezing Cardiovascular: denies: chest pain, palpitations Endocrine: no symptoms reported Gastrointestinal: denies: abdominal pain, nausea, diarrhea Genitourinary: denies: urgency, dysuria Musculoskeletal: arthralgia (right shoulder, right lateral neck). denies: back pain, joint swelling Skin: denies: rash, lesions Neurological: denies: headache, weakness, numbness, paresthesias, confusion, abnormal gait, vertigo Psychiatric: denies: anxiety, depression Hematological/Lymphatic: denies: easy bleeding, easy bruising ED Past Medical Hx - Past Medical History Previous Medical History?: Yes Hx Hypertension: Yes Hx Headaches / Migraines: Yes - Surgical History Past Surgical History?: Yes Additional Surgical History: nasal surgery. eye surgery - Social History Smoking Status: Never Smoker Substance Use Type: Alcohol - Medications Home Medications: Home Medications Medication Instructions Recorded Confirmed Last Taken Type Naproxen [Naprosyn TAB] 375 mg PO BID PRN #20 tablet 01/03/18 Unknown Rx Sulfamethoxazole/Trimethoprim 1 each PO BID #14 tablet 01/03/18 Unknown Rx [Bactrim Ds Tablet] cephALEXin [Keflex] 500 mg PO Q12HR #14 cap 01/03/18 Unknown Rx Azithromycin [Zithromax Z-ROBI] 250 mg PO DAILY #6 tablet 01/29/19 Unknown Rx Benzonatate [Tessalon Perle] 100 mg PO Q8H PRN #20 capsule 01/29/19 Unknown Rx Ibuprofen [Motrin] 600 mg PO Q8H PRN #20 tablet 01/29/19 Unknown Rx Prednisone [predniSONE 10 mg 10 mg PO .TAPER #1 tab.ds.pk 01/29/19 Unknown Rx (6-Day Pack, 21 Tabs)] Acetaminophen/Codeine [Tylenol 1 tab PO Q6H PRN #15 tab 04/15/19 Unknown Rx /Codeine # 3 tab] Sulfamethoxazole/Trimethoprim 2 each PO BID #28 tablet 04/15/19 Unknown Rx [Bactrim DS TAB] Clindamycin [Clindamycin CAP] 300 mg PO Q8H #21 cap 04/20/19 Unknown Rx Ibuprofen [Motrin 600 MG tab] 600 mg PO Q8H PRN #20 tablet 04/20/19 Unknown Rx Naproxen [Naprosyn TAB] 500 mg PO Q12H PRN #20 tablet 05/05/19 Unknown Rx predniSONE [Deltasone] 40 mg PO QDAY #10 tab 05/05/19 Unknown Rx tiZANidine [Zanaflex 4mg TAB] 4 mg PO Q8H PRN #21 tablet 05/05/19 Unknown Rx traMADol [Ultram] 50 mg PO Q6HR PRN #10 tablet 05/05/19 Unknown Rx ED Physical Exam - General Limitations: No Limitations General appearance: alert, in no apparent distress - Head Head exam: Present: atraumatic, normocephalic, normal inspection - Eye Eye exam: Present: normal appearance, PERRL, EOMI. Absent: scleral icterus, conjunctival injection Pupils: Present: normal accommodation - ENT ENT exam: Present: normal exam, normal orophraynx, mucous membranes moist, TM's normal bilaterally, normal external ear exam - Neck Neck exam: Present: normal inspection, tenderness (right lateral neck tenderness), full ROM. Absent: meningismus, lymphadenopathy, thyromegaly - Respiratory Respiratory exam: Present: normal lung sounds bilaterally. Absent: respiratory distress, wheezes, rales, rhonchi, chest wall tenderness, accessory muscle use, decreased breath sounds, prolonged expiratory - Cardiovascular Cardiovascular Exam: Present: normal rhythm, tachycardia, normal heart sounds. Absent: systolic murmur, diastolic murmur, rubs, gallop - GI/Abdominal GI/Abdominal exam: Present: soft, normal bowel sounds. Absent: distended, tenderness, guarding, hyperactive bowel sounds, hypoactive bowel sounds, organomegaly - Rectal Rectal exam: Present: deferred - Extremities Exam Extremities exam: Present: normal inspection, full ROM, tenderness (lateral right shoulder tenderness), normal capillary refill - Back Exam Back exam: Present: normal inspection, full ROM. Absent: tenderness, CVA tenderness (L), muscle spasm, paraspinal tenderness, vertebral tenderness - Neurological Exam Neurological exam: Present: alert, oriented X3, CN II-XII intact, normal gait, reflexes normal - Psychiatric Psychiatric exam: Present: normal affect, normal mood - Skin Skin exam: Present: warm, dry, intact, normal color. Absent: rash ED Course Vital Signs 05/06/19 05/06/19 17:31 18:11 Temperature 98.2 F Pulse Rate 119 H Respiratory 20 18 Rate Blood Pressure 167/113 O2 Sat by Pulse 100 Oximetry - Reevaluation(s) Reevaluation #1: 05/06/19 20:26 Patient is alert and oriented 3 and is not in distress, but tachycardic in triage on morning and then during the physical exam. Patient was treated initially in the ED with ibuprofen and steroid. It is hardly 24-hour since the patient was discharged from the ED with the same complaint, and now patient is back complaining of the same pain having not taken that previously prescribed medications at home. Patient was advised that the medications that were prescribed for him 24 hours ago are sufficient to treat his tendinitis pain and that no narcotic medication will be given to him in the ED for the pain. ED Medical Decision Making - Medical Decision Making Patient is alert and oriented 3 and is not in distress, but tachycardic in triage on morning and then during the physical exam. Patient was treated initially in the ED with ibuprofen and steroid. It is hardly 24-hour since the patient was discharged from the ED with the same complaint, and now patient is back complaining of the same pain having not taken that previously prescribed medications at home. Patient was advised that the medications that were prescribed for him 24 hours ago are sufficient to treat his tendinitis pain and that no narcotic medication will be given to him in the ED for the pain. Patient was persistently calling on his cell phone his family members and relatives and insisting that they also be involved when the provider is in the room examining him and they also wanted to question the patient's plan of care. Patient was advised that we cannot talk to people on the phone that we do not see a new do not know has that is a violation of the law on his privacy. The patient insisted on seeing another provider instead. - Differential Diagnosis tendonitis of right shoulder; acute torticollis, muscle strain Critical care attestation.: If time is entered above; I have spent that time in minutes in the direct care of this critically ill patient, excluding procedure time. ED Disposition Clinical Impression: Acute pain of right shoulder, Right shoulder tendonitis Muscle strain of right shoulder Qualifiers: Encounter type: initial encounter Qualified Code(s): S46.911A - Strain of unspecified muscle, fascia and tendon at shoulder and upper arm level, right arm, initial encounter Disposition: - TO HOME OR SELFCARE Is pt being admited?: No Does the pt Need Aspirin: No Condition: Stable Instructions: Muscle Strain (ED), Musculoskeletal Pain (ED), Tendinitis (ED) Additional Instructions: Take medications with food, drink plenty of fluids and follow up with your primary care physician in 7-10 days for reevaluation. Return to ED immediately if symptoms get worse. Referrals: [facility] [Outside] - 3-5 Days Time of Disposition: 20:13 Print Language: ARMENIAN
== END 2019-05-06 20:44 | disposition home or self-care (01) ==
LOC: ED 17:03
DX: S46.911A Strain of unspecified muscle, fascia and tendon at shoulder and upper arm level, right arm, initial encounter (principal); M75.91 Shoulder lesion, unspecified, right shoulder; I10 Essential (primary) hypertension; G43.909 Migraine, unspecified, not intractable, without status migrainosus; Z79.899 Other long term (current) drug therapy; Z98.890 Other specified postprocedural states; Z88.6 Allergy status to analgesic agent; X58.XXXA Exposure to other specified factors, initial encounter; Y93.89 Activity, other specified; Y92.89 Other specified places as the place of occurrence of the external cause; Y99.8 Other external cause status
CPT/HCPCS: 93005; 93010; 99282; J7512